=== PATIENT | male | born 1995 | race Caucasian/White ===

== ENCOUNTER → 2023-06-22 08:07 | Outpatient (CLI) | payer OTHER, SELFPAY ==
--- NOTE | 2023-06-22 | DI.RAD.S_ITS ---
PROCEDURE: [place] HIP INJECTION MR/CT LT INDICATIONS: LEFT HIP PAIN TECHNIQUE: The indications, alternatives, benefits, risks, and complications of the procedure were explained to the patient. Written informed consent was obtained and placed in the chart. The hip was examined fluoroscopically with the legs fixed in slight internal rotation, and a site for needle placement chosen for entry into the hip joint from an anterior approach. Care was taken to locate the common femoral artery and vein beforehand. The skin was prepped and draped in a sterile fashion, and 1% Lidocaine infiltrated from skin down to joint capsule. A spinal needle was inserted into the joint, and a small amount of iodinated contrast media injected to confirm intra-articular placement of the needle tip. This was followed by approximately 10 mL dilute solution of a gadolinium containing MR contrast agent. The needle was removed and a dressing was applied. The patient was given postprocedural instructions and sent to the MR suite for imaging. COMPARISON: None. FINDINGS: A single fluoroscopic spot image demonstrates intra-articular location of injected iodinated contrast. IMPRESSION: Successful fluoroscopically guided administration of dilute Gadolinium solution into the hip joint for MR arthrogram. Dictated by: Brennon Mancilla M.D. on 06/22/2023 at 10:59 Approved by: Brennon Mancilla M.D. on 06/22/2023 at 10:59
--- NOTE | 2023-06-22 | DI.MRI.S_ITS ---
PROCEDURE: MR HIP LT W CON INDICATIONS: LEFT HIP PAIN TECHNIQUE: After the administration of 10 mL of dilute intra-articular Gadolinium contrast, coronal STIR of the bony pelvis; coronal and oblique axial T1 spin echo with fat saturation, axial T2 fast spin echo with fat saturation, sagittal T1 spin echo with and without fat saturation of the involved hip. COMPARISON: [facility], CR, XR PELVIS WITH BILATERAL LATERAL HIPS, 06/01/2023, 14:49. FINDINGS: Image quality: Diagnostic. Patient motion is noted. Bones and joints: Bone marrow of the pelvic ring and proximal femurs show normal signal throughout. Prominence of superior anterior left femoral head neck junction is seen which can be seen associated with CAM type femoral acetabular impingement. No intraosseous lesions or fractures. No avascular necrosis of the femoral head. The visualized lower lumbar spine appears normally aligned. The ligamental, neck, and labral plicae appear normal where visualized. Tendons and ligaments: Mild distal left gluteus medius tendinosis at its insertion on greater trochanter is seen. Distal left gluteus minimus tendinosis is also noted. The nearby proximal iliotibial band also appears intact. The iliopsoas tendon appears intact, without adjacent bursal fluid collections or evidence for impingement syndrome. The origin of the hamstring tendon is intact at the ischial tuberosity, as well as the associated sacrotuberous ligament. The straight and reflected heads of the rectus femoris muscle origin appear intact, as well as the conjoint tendon. The ligamentum teres appears intact where visualized. Labrum and cartilage: There is subtle fraying of superior anterior labrum with questionable contrast extension at 1 to 2 o'clock position concerning for subtle superior anterior left hip labral tear.. Cartilage surface of the femoral head appears of normal thickness. No paralabral cysts. The alpha angle of the femur is within normal limits at less than 55 degrees. Soft tissues: Visualized muscles demonstrate normal bulk and internal signal. Quadratus femoris muscle demonstrates no internal edema to suggest ischiofemoral impingement. The proximal sciatic neurovascular bundle appears normal adjacent to the hamstring tendons. No free pelvic fluid. Bladder wall thickness is normal. Genitourinary structures and bowel loops appear normal where visualized. IMPRESSION: 1. Finding is concerning for subtle superior anterior left hip labral tear at 1 to 2 o'clock position. 2. No marrow edema. No fracture or dislocation. No evidence of avascular necrosis. Mild prominence of superior anterior left femoral head neck junction which can be seen associated with CAM type femoral acetabular impingement. 3. Distal left gluteus medius and minimus tendinosis. No other muscle or tendon signal abnormalities. Dictated by: Neville Aranda M.D. on 06/22/2023 at 12:45 Approved by: Neville Aranda M.D. on 06/22/2023 at 13:13
[2023-06-22] MEDS: LIDOCAINE 1% 20 ML INJ (09:15)
[2023-06-22] MEDS: SODIUM CHLORIDE 0.9 % 20 ML VIAL IV (09:16)
== END ==
PROVIDERS: Referring Provider Orthopaedic Surgery; Visit Provider Orthopaedic Surgery
DX: M25.859 Other specified joint disorders, unspecified hip (principal); M25.552 Pain in left hip
CPT/HCPCS: 27093; 73723; 77002

== ENCOUNTER → 2023-06-23 08:18 | Outpatient (CLI) | payer OTHER, SELFPAY ==
--- NOTE | 2023-06-23 | DI.RAD.S_ITS ---
PROCEDURE: FL HIP INJECTION MR/CT RT INDICATIONS: RIGHT HIP PAIN TECHNIQUE: The indications, alternatives, benefits, risks, and complications of the procedure were explained to the patient. Written informed consent was obtained and placed in the chart. The hip was examined fluoroscopically with the legs fixed in slight internal rotation, and a site for needle placement chosen for entry into the hip joint from an anterior approach. Care was taken to locate the common femoral artery and vein beforehand. The skin was prepped and draped in a sterile fashion, and 1% Lidocaine infiltrated from skin down to joint capsule. A spinal needle was inserted into the joint, and a small amount of iodinated contrast media injected to confirm intra-articular placement of the needle tip. This was followed by approximately 12 mL dilute solution of a gadolinium containing MR contrast agent. The needle was removed and a dressing was applied. The patient was given postprocedural instructions and sent to the MR suite for imaging. COMPARISON: [facility], , [place] HIP INJECTION MR/CT LT, 06/22/2023, 8:28. FINDINGS: A single fluoroscopic spot image demonstrates intra-articular location of injected iodinated contrast. IMPRESSION: Successful fluoroscopically guided administration of dilute Gadolinium solution into the hip joint for MR arthrogram. Dictated by: David Simon M.D. on 06/23/2023 at 9:17 Approved by: David Simon M.D. on 06/23/2023 at 9:18
[2023-06-23] MEDS: SODIUM CHLORIDE 0.9 % 20 ML VIAL IV (08:59)
[2023-06-23] MEDS: LIDOCAINE 1% 20 ML INJ (08:59)
--- NOTE | 2023-06-23 12:11 | DI.MRI.S_ITS ---
PROCEDURE: MR HIP RT W CON INDICATIONS: RIGHT HIP PAIN TECHNIQUE: After the administration of 10 mL of dilute intra-articular Gadolinium contrast, coronal STIR of the bony pelvis; coronal and oblique axial T1 spin echo with fat saturation, axial T2 fast spin echo with fat saturation, sagittal T1 spin echo with and without fat saturation of the involved hip. COMPARISON: [facility], MR, MR HIP LT W CON, 06/22/2023, 9:02. [facility], CR, XR PELVIS WITH BILATERAL LATERAL HIPS, 06/01/2023, 14:49. FINDINGS: Image quality: Excellent. Bones and joints: Bone marrow of the pelvic ring and proximal femurs show normal signal throughout. No intraosseous lesions or fractures. No avascular necrosis of the femoral heads. The visualized lower lumbar spine appears normally aligned. Tendons and ligaments: The gluteus medius and minimus tendons demonstrate mild tendinosis, without associated muscle atrophy. The proximal iliotibial band appears intact. The iliopsoas tendon appears intact, without adjacent bursal fluid collections. The origin of the hamstring tendon is intact at the ischial tuberosity. The direct and indirect heads of the rectus femoris muscle origin appear intact. Labrum and cartilage: The acetabular labrum appears intact. Cartilage surface of the femoral head appears of normal thickness. There is asphericity of the femoral head with an osseous protuberance at the anterosuperior femoral head/neck junction, which can be seen in the setting of cam type femoroacetabular impingement. No intra-articular filling defect. Soft tissues: Mild residual [id number] signal is seen anterior to the left hip related to the arthrogram injection from the day prior. Visualized muscles demonstrate normal bulk and internal signal. Quadratus femoris muscle demonstrates no internal edema to suggest ischiofemoral impingement. The proximal sciatic neurovascular bundle appears intact. The included portions of the pelvis demonstrate no acute abnormality. IMPRESSION: 1. No labral tear or focal cartilage defect is seen in the right hip. No acute trabecular bone injury. 2. Asphericity of the femoral head with an osseous protuberance at the anterosuperior femoral head/neck junction, which can be seen in the setting of cam type femoroacetabular impingement. 3. Mild distal gluteus medius and minimus tendinosis. Approved by: Km Mancera M.D. on 06/23/2023 at 13:31
== END ==
PROVIDERS: Referring Provider Orthopaedic Surgery; Visit Provider Orthopaedic Surgery
DX: M25.859 Other specified joint disorders, unspecified hip (principal); M25.551 Pain in right hip
CPT/HCPCS: 27093; 73722; 77002